=== PATIENT | male | born 1995 | race Caucasian/White ===

== ENCOUNTER 2020-03-15 01:54 | Emergency (ER) | payer OTHER ==
[~2020-03-15] VITALS: Ht 170.2 cm; Wt 128.8 kg
[2020-03-15 02:11] VITALS: BP_SYST 115
--- NOTE | 2020-03-15 02:11 | NUR ---
Patient to ER bed 8 to gown for evaluation. Side rails up.
--- NOTE | 2020-03-15 02:12 | NUR ---
Patient came to ER with friend/family. C/O left lower leg pain x today. Patient tripped and fell at work ~ 0100 AM, no LOC, A/O,X4, left lower leg pain, pain rate 8/10, laceration 2 cm, bleeding control.
--- NOTE | 2020-03-15 02:51 | NUR ---
ER Dr. Jaeger at bedside examining patient.
[2020-03-15] MEDS ORDERED: ACETAMINOPHEN 500 MG TABLET ONE (02:59)
[2020-03-15] MEDS ORDERED: ACETAMINOPHEN 500 MG TABLET PO ONE (03:00)
--- NOTE | 2020-03-15 03:10 | NUR ---
X-ray at bedside.
[2020-03-15] MEDS ORDERED: LIDOCAINE 1% 10 MG/ML, 50 ML MDV INJ ONE (03:30)
[2020-03-15] MEDS ORDERED: LIDOCAINE 1%, 20 ML MDV 20 ML ONE (03:31)
--- NOTE | 2020-03-15 03:39 | NUR ---
Patient has a 2 cm laceration to left lower leg. Dr. Jaeger applied sutures using sterile technique. Edges well approximated. Site cleansed with NSS and Betadine. Dressing of Non-Adhesive Gauze and Bacitracin applied to site. No bleeding noted. Pt tolerated well.
[2020-03-15] MEDS ORDERED: BACITRACIN 1 GM OINT TP ONE (03:50)
[2020-03-15] MEDS ORDERED: DIPH-TET-PERTUS Vaccine 0.5 ML VIAL (ADACEL) I.M. ONE ×2 (03:51→04:00)
[2020-03-15 04:09] VITALS: BP_SYST 115
--- NOTE | 2020-03-15 04:09 | NUR ---
Patient given written and verbal discharge instructions and verbalizes understanding.ER MD discussed with patient the results and treatment provided. Patient in stable condition. ID arm band removed. Rx of Bactroban 2 % given. Patient educated on pain management and to follow up with PMD. Pain Scale . Opportunity for questions provided and answered. Medication side effect fact sheet provided.
== END 2020-03-15 04:09 | disposition home or self-care (01) ==
LOC: SED 01:54
DX: S81.812A Laceration without foreign body, left lower leg, initial encounter (principal); W45.8XXA Other foreign body or object entering through skin, initial encounter; Y93.89 Activity, other specified; Y92.89 Other specified places as the place of occurrence of the external cause; Y99.8 Other external cause status
CPT/HCPCS: 12001; 73590; 90471; 90715; 99283; J2001

== ENCOUNTER 2020-03-24 13:36 | Emergency (ER) | payer OTHER ==
[~2020-03-24] VITALS: Ht 170.2 cm; Wt 127.5 kg
[2020-03-24 13:47] VITALS: BP_SYST 147
[2020-03-24] MEDS ORDERED: BACITRACIN 1 GM OINT TP ONE (14:16)
[2020-03-24] MEDS ORDERED: BACEYEO OP (14:18)
[2020-03-24] MEDS ORDERED: IBUP-1969 PO (14:18)
[2020-03-24] MEDS ORDERED: CEPH-568 PO (14:18)
[2020-03-24 14:26] VITALS: BP_SYST 147
== END 2020-03-24 14:25 | disposition home or self-care (01) ==
LOC: SED 13:36
DX: S81.812D Laceration without foreign body, left lower leg, subsequent encounter (principal); Z79.899 Other long term (current) drug therapy; X58.XXXD Exposure to other specified factors, subsequent encounter
CPT/HCPCS: 99283

== ENCOUNTER 2020-06-09 07:34 | Emergency (ER) | payer OTHER ==
[~2020-06-09] VITALS: Ht 170.2 cm; Wt 130.2 kg
[~2020-06-09 07:34] MED LIST: BACEYEO OP; CEPH-568 PO; IBUP-1969 PO
[2020-06-09 07:45] VITALS: BP_SYST 159
--- NOTE | 2020-06-09 07:50 | NUR ---
Patient to ER bed 7 to gown for evaluation. Side rails up. Report given to MARGARETTE / SWATHI ROBLES.
--- NOTE | 2020-06-09 07:55 | NUR ---
pt came in byself from home with c/o ear pain since last night at 9pm, rates it 7/10 states has not taken any meds for the pain, did fly on monday and thinks that might be the cause. no other complaits.
--- NOTE | 2020-06-09 08:06 | NUR ---
ER at bedside examining patient.
[2020-06-09] MEDS ORDERED: AMOX500C2 PO (08:12)
[2020-06-09] MEDS ORDERED: PSEU120T56 PO (08:12)
[2020-06-09] MEDS ORDERED: NAPR-1172 PO (08:12)
[2020-06-09 08:23] VITALS: BP_SYST 156
--- NOTE | 2020-06-09 08:25 | NUR ---
Patient given written and verbal discharge instructions and verbalizes understanding. Dr. Altamirano discussed with patient the results and treatment provided. Patient in stable condition. ID arm band removed. Rx of Amoxicillin, naprosyn and sudafed given. Patient educated on pain management and to follow up with PMD. Pain Scale 3. Opportunity for questions provided and answered. Medication side effect fact sheet provided.
== END 2020-06-09 08:23 | disposition home or self-care (01) ==
LOC: SED 07:34
DX: H66.91 Otitis media, unspecified, right ear (principal); Z79.899 Other long term (current) drug therapy
CPT/HCPCS: 99283